=== PATIENT | male | born 1950 | race Caucasian/White ===

== ENCOUNTER 2018-10-08 18:13 | Emergency (ER) | payer MEDICARE, BC ==
--- NOTE | 2018-10-08 18:44 | RADIOLOGY REPORT (SQ) ---
EXAM DESCRIPTION: CT HEAD WITHOUT COMPLETED DATE/TIME: 10/08/2018 6:30 pm REASON FOR STUDY: stroke/fall COMPARISON: None. TECHNIQUE: Axial images acquired through the brain without intravenous contrast. Images reviewed wi th bone, brain and subdural windows. Images stored on PACS. All CT scanners at this facility use dose modulation, iterative reconstruction, and/or weight based d osing when appropriate to reduce radiation dose to as low as reasonably achievable (ALARA). [facility]: Dose Right [facility]: CareDose [facility]: Dose Right [facility]: Teradose 4D [facility]: Smart [employer] RADIATION DOSE: CT Rad equipment meets quality standard of care and radiation dose reduction techniq ues were employed. CTDIvol: 53.2 mGy. DLP: 1177 mGy-cm. mGy. LIMITATIONS: None. FINDINGS: VENTRICLES: Normal size and contour. CEREBRUM: No hemorrhage. No midline shift. No evidence for acute infarction. Surgical clips in le ft supraclinoid region. Left frontal -temporal encephalomalacia- areas of low density in the white m atter. CEREBELLUM: No masses. No hemorrhage. No alteration of density. No evidence for acute infarction. EXTRAAXIAL SPACES: No fluid collections. No masses. ORBITS AND GLOBE: No intra- or extraconal masses. Normal contour of globe without masses. CALVARIUM: No fracture. PARANASAL SINUSES: No fluid or mucosal thickening. SOFT TISSUES: No mass or hematoma. OTHER: No other significant finding. IMPRESSION: No hemorrhage. No midline shift. No evidence for acute infarction. Surgical clips in l eft supraclinoid region. Left frontal -temporal encephalomalacia- areas of low density in the white m atter. EVIDENCE OF ACUTE STROKE: NO. COMMENT: Quality ID # 436: Final reports with documentation of one or more dose reduction techniques (e.g., Automated exposure control, adjustment of the mA and/or kV according to patient size, use of iterative reconstruction technique) TECHNICAL DOCUMENTATION: JOB ID: [id number] [place]-72 2010 [employer]- All Rights Reserved Reading location - IP/workstation name: [email or web address]
--- NOTE | 2018-10-08 18:45 | RADIOLOGY REPORT (SQ) ---
EXAM DESCRIPTION: CT CERVICAL SPINE WITHOUT COMPLETED DATE/TIME: 10/08/2018 6:30 pm REASON FOR STUDY: stroke/fall COMPARISON: None. TECHNIQUE: Axial images acquired through the cervical spine without intravenous contrast. Images re viewed with lung, soft tissue and bone windows. Reconstructed coronal and sagittal MPR images review ed. Images stored on PACS. All CT scanners at this facility use dose modulation, iterative reconstruction, and/or weight based d osing when appropriate to reduce radiation dose to as low as reasonably achievable (ALARA). [facility]: Dose Right [facility]: CareDose [facility]: Dose Right [facility]: Teradose 4D [facility]: [employer] RADIATION DOSE: CT Rad equipment meets quality standard of care and radiation dose reduction techniq ues were employed. CTDIvol: 22.9 mGy. DLP: 458 mGy-cm. mGy. LIMITATIONS: None. FINDINGS: ALIGNMENT: Anatomic. MINERALIZATION: Normal. VERTEBRAL BODIES: No fractures or dislocation. DISCS: Status post anterior cervical fusion of C5 through C7. FACETS, LATERAL MASSES, POSTERIOR ELEMENTS: No fractures. No dislocation. No acute findings. HARDWARE: None in the spine. VISUALIZED RIBS: No fractures. LUNG APICES AND SOFT TISSUES: No significant or acute findings. OTHER: No other significant finding. IMPRESSION: No fracture or static subluxation of the cervical spine. Status post anterior cervical fusion of C5 through C7. TECHNICAL DOCUMENTATION: JOB ID: [id number] Quality ID # [id number]: Final reports with documentation of one or more dose reduction techniques (e.g., Au tomated exposure control, adjustment of the mA and/or kV according to patient size, use of iterative reconstruction technique) 2010 [employer]- All Rights Reserved Reading location - IP/workstation name: [email or web address]
--- NOTE | 2018-10-08 18:50 | RADIOLOGY REPORT (SQ) ---
EXAM DESCRIPTION: CHEST SINGLE VIEW COMPLETED DATE/TIME: 10/08/2018 6:34 pm REASON FOR STUDY: STROKE/FALL COMPARISON: None. EXAM PARAMETERS: NUMBER OF VIEWS: One view. TECHNIQUE: Single frontal radiographic view of the chest acquired. RADIATION DOSE: NA LIMITATIONS: None. FINDINGS: LUNGS AND PLEURA: There is elevation of the left hemidiaphragm and probable chronic scarri ng or atelectasis. MEDIASTINUM AND HILAR STRUCTURES: No masses. Contour normal. HEART AND VASCULAR STRUCTURES: Cardiomegaly. BONES: No acute findings. HARDWARE: None in the chest. OTHER: No other significant finding. IMPRESSION: There is elevation of the left hemidiaphragm and probable chronic scarring or atelectasi s. No definite acute airspace abnormality. Comparison to prior examinations, if available, would be helpful. Cardiomegaly. TECHNICAL DOCUMENTATION: JOB ID: [id number] [employer]- All Rights Reserved Reading location - IP/workstation name: [email or web address]
[2018-10-08 18:51] LABS: ABSOLUTE BASOPHILS # (AUTO) 0.1 10^3/uL (0.0-0.2); ABSOLUTE EOSINOPHILS # (AUTO) 0.1 10^3/uL (0.0-0.6); ABSOLUTE MONOCYTES (AUTO) 0.4 10^3/uL (0.1-1.4); BASOPHILS % (AUTO) 1.3 % (0-2); EOSINOPHILS % (AUTO) 1.5 % (0-6); HEMATOCRIT 45.5 % (37.9-51.0); HEMOGLOBIN 14.8 g/dL (13.5-17.0); LYMPHOCYTES % (AUTO) 26.3 % (13-45); MEAN CORPUSCULAR HEMOGLOBIN 29.8 pg (27.0-33.4); MEAN CORPUSCULAR HGB CONC 32.6 g/dL (32.0-36.0); MEAN CORPUSCULAR VOLUME 91 fl (80-97); MONOCYTES % (AUTO) 5.4 % (3-13); PLATELET COUNT 175 10^3/uL (150-450); RED BLOOD COUNT 4.98 10^6/uL (4.35-5.55); RED CELL DISTRIBUTION WIDTH 17.5 % (11.5-14.0); SEGMENTED NEUTROPHILS % (AUTO) 65.5 % (42-78); TOTAL CELLS COUNTED % (AUTO) 100 %; WHITE BLOOD COUNT 7.6 10^3/uL (4.0-10.5)
--- NOTE | 2018-10-08 19:02 | ER Document Report ---
ED General - General Chief Complaint: S/S of Possible Stroke Stated Complaint: POSSIBLE STROKE Time Seen by Provider: 10/08/18 18:15 Cannot obtain history due to: Altered mental status Notes: Patient is a 68-year-old male with a past medical history of intracranial aneurysm status post repair, atrial fibrillation, hypertension, presents by EMS with acute left-sided facial droop, left-sided neglect, dysarthria. Patient drove from [place] today, last known normal proximal 30 minutes prior to presentation. Has some baseline right-sided weakness per family at baseline but does not have left-sided symptoms at baseline. Took his morning aspirin earlier today. Symptoms were apparently abrupt in onset and have been ongoing since that time. Nothing is been noted to improve or worsen symptoms. Patient is unable to partake in history taking secondary to altered mental status and dysarthria. - Related Data Allergies/Adverse Reactions: No Known Allergies Allergy (Unverified 10/08/18 20:33) Past Medical History - General Information source: Relative Cannot obtain history due to: Altered mental status - Social History Smoking Status: Former Smoker Frequency of alcohol use: None Drug Abuse: None Lives with: Family Family History: Reviewed & Not Pertinent Patient has suicidal ideation: No Patient has homicidal ideation: No Renal/ Medical History: Denies: Hx Peritoneal Dialysis Review of Systems - Review of Systems -: Yes ROS unobtainable due to patient's medical condition Physical Exam - Vital signs Vitals: Pulse Resp BP Pulse Ox 78 14 139/89 H 98 10/08/18 18:20 10/08/18 18:20 10/08/18 18:20 10/08/18 18:20 Interpretation: Normal Notes: PHYSICAL EXAMINATION: GENERAL: Ill in appearance, obviously confused and neglecting the left side of h is body HEAD: Atraumatic, normocephalic. EYES: Pupils equal round and reactive to light, extraocular movements intact, sclera anicteric, conjunctiva are normal. ENT: nares patent, oropharynx clear without exudates. Moist mucous membranes. NECK: Normal range of motion, supple without lymphadenopathy LUNGS: Breath sounds clear to auscultation bilaterally and equal. No wheezes rales or rhonchi. HEART: Irregular regular rate and rhythm without murmurs ABDOMEN: Soft, nontender, normoactive bowel sounds. No guarding, no rebound. No masses appreciated. EXTREMITIES: no pitting or edema. No cyanosis. NEUROLOGICAL: 5 out of 5 distal and proximal strength in the right upper and lower extremity. Patient has complete left-sided neglect, unable to participate in strength testing on the left side. Right-sided gaze deviation, does not cross midline to the left. Left-sided facial droop. Mild dysarthria. Alert although oriented only to person and month. Gait deferred PSYCH: Affect not appropriate situation SKIN: Warm, Dry, normal turgor, no rashes or lesions noted. Course - Re-evaluation Re-evalutation: 10/08/18 19:00 Documentation is delayed as I have been at this patient's bedside continuously since his arrival. In summary the patient does arrive with a very dense right MCA distribution stroke with complete left-sided neglect. Has no effort in the left upper lower extremity, does not even seem to acknowledge that these areas of his body exist. The patient also has a left-sided facial droop and eyes are deviated towards the right. There is mild dysarthria and he is also somewhat disoriented to year, location but does know the month and his name. Unfortunately the patient is not a TPA candidate as he has an absolute contraindication of having prior intracranial aneurysms with rupture and coil ing. He has already had aspirin today. Given his absolute contraindication to TPA, I did consult with neurology at [facility] and spoke to Dr. Aguilera. I did query whether or not an intervascular intervention would be an option for this patient. CTA of the head and neck will be obtained as soon as results of basic metabolic panel have returned. Dr. Aguilera advises that the patient should be transferred regardless as we would not have the ability to do a craniotomy and the patient may have substantial swelling and increased intercranial pressure given the territory and degree of his stroke. The patient has thus been accepted to [facility] by Dr. Aguilera. I will contact [facility] again as soon as I have the results of CT of the head and neck. I have discussed the patient's care with his over the phone as well as his son who is at the bedside. Patient remains in critical condition, will continue be reassessed at regular intervals. 10/08/18 20:10 Patient is clinically unchanged, deficits remain on change from previous exam. Has been somewhat nauseated treated with 8 of Zofran. Patient pending air transport to [facility]. 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 The edges have been pushed to [facility]. Did update Dr. Felton the neurologist now on-call. Patient is pending air transport. 10/08/18 21:05 Patient remained appropriate for flight transport. - Vital Signs Vital signs: Temp Pulse Resp BP Pulse Ox 100.9 F H 78 17 140/96 H 97 10/08/18 18:32 10/08/18 18:20 10/08/18 20:31 10/08/18 20:31 10/08/18 20:31 - Laboratory Result Diagrams: 10/08/18 18:36 10/08/18 18:36 Laboratory results interpreted by me: 10/08/18 10/08/18 18:36 18:36 RDW 17.5 H Creatinine 1.27 H Est GFR (Non-Af Amer) 57 L ALT 15 L - Diagnostic Test Radiology reviewed: Image reviewed, Reports reviewed Radiology results interpreted by me: 10/09/18 01:12 CT head: No acute intercranial bleed or mass - EKG Interpretation by Me Additional EKG results interpreted by me: 10/09/18 01:12 Atrial fibrillation, rate 71, no ST elevations or depressions, QTC is 422. Critical Care Note - Critical Care Note Total time excluding time spent on procedures (mins): 38 Comments: Critical care time spent obtaining history from patient or surrogate, discussions with consultants, development of treatment plan with patient or surrogate, evaluation of patient's response to treatment, examination of patient, ordering and performing treatments and interventions, ordering and review of laboratory studies, re-evaluation of patient's condition, ordering and review of radiographic studies Discharge - Discharge Clinical Impression: Left-sided neglect Stroke Qualifiers: CVA mechanism: unspecified Qualified Code(s): I63.9 - Cerebral infarction, unspecified Atrial fibrillation Qualifiers: Atrial fibrillation type: chronic Qualified Code(s): I48.2 - Chronic atrial fibrillation Condition: Critical Disposition: [facility]
[2018-10-08 19:33] LABS: CALCIUM 8.9 mg/dL (8.4-10.2); GLUCOSE 108 mg/dL (75-110)
[2018-10-08 19:34] LABS: ALANINE AMINOTRANSFERASE 15 U/L (21-72); ALKALINE PHOSPHATASE 106 U/L (38-126); ANION GAP 10 (5-19); ASPARTATE AMINO TRANSFERASE 23 U/L (17-59); BILIRUBIN,TOTAL 0.7 mg/dL (0.2-1.3); BLOOD UREA NITROGEN 12 mg/dL (7-20); CARBON DIOXIDE 29 mmol/L (22-30); CHLORIDE 103 mmol/L (98-107); POTASSIUM 4.5 mmol/L (3.6-5.0); SODIUM 141.6 mmol/L (137-145)
[2018-10-08 19:35] LABS: INTERNATIONAL RATION (INR) 1.14; PROTHROMBIN TIME 15.2 SEC (11.4-15.4)
[2018-10-08 19:35] LABS: ALCOHOL < 10 mg/dL (NONE DETECTED); BILIRUBIN,DIRECT 0.3 mg/dL (0.0-0.4)
[2018-10-08 19:36] LABS: PARTIAL THROMBOPLASTIN TIME 30.9 SEC (23.5-35.8)
[2018-10-08] MEDS ORDERED: ONDANSETRON HCL INJ/PF 4 MG/2 ML SDV ONE (19:39)
[2018-10-08] MEDS ORDERED: ONDANSETRON HCL INJ/PF 4 MG/2 ML SDV IV ONE (19:41)
[2018-10-08 19:43] LABS: TOTAL PROTEIN 7.1 g/dL (6.3-8.2)
[2018-10-08] MEDS ORDERED: PROMETHAZINE HCL INJ 25 MG/1 ML VIAL IV ONE (20:14)
--- NOTE | 2018-10-08 20:44 | RADIOLOGY REPORT (SQ) ---
EXAM DESCRIPTION: RadLex: CT NECK ANGIOGRAPHY WITHOUT THEN WITH IV CONTRAST, CT HEAD ANGIOGRAPHY WITHOUT THEN WITH IV CONTRAST CLINICAL HISTORY: 68 years Male; eval proximal r mca occlusion TECHNIQUE: CT angiogram of the head and neck using intravenous contrast.. MIP reconstructions were performed. Stenosis measurements performed using NASCET criteria. All CT scans at this facility use dose modulation, iterative reconstruction, and/or weight based dosing when appropriate to reduce radiation dose to as low as reasonably achievable. COMPARISON: Noncontrast CT 10/08/2018. FINDINGS: Neck: Aortic arch: Proximal arch vessels are widely patent. Right carotid: Calcific plaque at the bifurcation. There is tapered occlusion of the internal carotid artery within 2 cm of the origin. A linear intraluminal filling defect suggests dissection. There is nonfilling of the cervical ICA. ECA remains patent. Left carotid: Mild calcific plaque at the bifurcation without stenosis. No intraluminal filling defects. Right vertebral: No focal stenosis or intraluminal filling defects. Left vertebral: No focal stenosis or intraluminal filling defects. Degenerative changes are noted in the cervical spine. There has been previous C5-C7 ACDF. Head: Right ICA: Nonfilling of the intracranial segment, up to the ICA terminus. Left ICA: Calcific plaque. Patent without stenosis. There are 2 aneurysm clips superior to the ICA terminus. Vertebrals: patent Basilar:patent BLAST FURNACE BLOWER: patent bilaterally. Left T1 segment is markedly hypoplastic. Posterior communicating arteries: Left is patent. Right is not reliably identified. Anterior communicating artery: patent JOSE: patent bilaterally Right MCA: M1 segment is occluded 1.2 cm from the origin. There is poor filling of right MCA branches. Left MCA: Patent. There is artifact from the aneurysm clips, but no evidence for significant stenosis of the M1 segment. No aneurysm. There is encephalomalacia in the anterior left frontal lobe as seen on noncontrast CT. No filling defects in the major dural venous sinuses. THIS REPORT CONTAINS FINDINGS THAT MAY BE CRITICAL TO PATIENT CARE: The findings were verbally discussed via telephone conference with DEANGELO HAWK at 7:39 PM CDT on 10/08/2018 . IMPRESSION: 1. 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 2. 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 3. No left carotid stenosis, or vertebral artery stenosis. 4. Left ICA terminus aneurysm clips 5. Atherosclerosis
[2018-10-08 20:46] VITALS: BP 140/96
--- NOTE | 2018-10-08 22:37 | EKG REPORT ---
SEVERITY:- ABNORMAL ECG - ATRIAL FIBRILLATION MULTIPLE PREMATURE COMPLEXES, SUPRAVEN . LEFT AXIS DEVIATION : Confirmed by: Vj Shepard MD 08-Oct-2018 22:36:31
== END 2018-10-08 21:17 | disposition short-term general hospital (02) ==
LOC: ER 18:13
DX: I63.9 Cerebral infarction, unspecified (principal); R29.727 NIHSS score 27; I48.2 Chronic atrial fibrillation; R29.810 Facial weakness; R41.4 Neurologic neglect syndrome; R47.1 Dysarthria and anarthria; I48.91 Unspecified atrial fibrillation; I10 Essential (primary) hypertension; Z79.82 Long term (current) use of aspirin
CPT/HCPCS: 93005; 99291; 96374; 96375; 36415; 82962; 80307; 85025; 85610; 85730; 80053; 84484; 71045; 70450; 70496; 70498; 72125; 93010; J2550; J2405